=== PATIENT | male | born 1955 | race Caucasian/White ===

== ENCOUNTER 2019-02-23 18:03 | Inpatient (IN) ==
--- NOTE | 2019-02-23 19:07 | PROVIDER DOCUMENTATION ---
This chart was entered by Britany Yates Scribe, acting as scribe for Norberto Morataya DO. HPI-Respiratory General - General Source: patient - History of Present Illness-Resp Quality of Pain: reports: none Severity in ED: reports: mild Onset/Duration: reports: just prior to arrival Timing: reports: still present Exposure: reports: other (food bolus inhalation) Cough Quality/Degree: reports: no cough Current Respiratory Medication Therapy: Initiated none Modifying Factors: improves with: albuterol nebulizer Associated Symptoms: reports: denies symptoms. denies: cough, hyperventilating, shortness of breath Similar Symptoms Previously?: No Recently seen or treated by another doctor?: No <Norberto Morataya - Last Filed: 02/23/19 19:06> <Michael Brown - Last Filed: 02/23/19 20:04> - General Chief Complaint: Shortness of Breath Stated Complaint: CHOKING SENSATION, CAN'T BREATHE GOOD Time Seen by Provider: 02/23/19 18:23 Allergies/Adverse Reactions: Patient Allergies Allergy/AdvReac Type Severity Reaction Status Date / Time No Known Allergies Allergy Verified 06/23/17 19:43 Home Medications: Home Medication List Medication Instructions Recorded Confirmed Last Taken Type Gabapentin [Neurontin] 300 mg PO TID 10/27/12 02/23/19 06/23/17 History Hydrocodone/Acetaminophen [Lortab 1 each PO BID 10/27/12 02/23/19 06/23/17 History 7.5-500 Tablet] Metformin HCl [Fortamet] 1,000 mg PO BID 10/27/12 02/23/19 06/23/17 History Methocarbamol [Robaxin-750] 750 mg PO TID 10/27/12 02/23/19 06/23/17 History Amiodarone [Cordarone] 200 mg PO DAILY 06/23/17 02/23/19 06/23/17 History Nabumetone 750 mg PO BID 06/23/17 02/23/19 06/23/17 History - History of Present Illness-Resp Nature of Presenting Problem: Pt is 63/M presenting to ED after inhaling some "stew" at dinner. Pt sts that he has been having a hard time breathing since. Pt has hx of R lung cancer and had partial lung removal in August. Pt is on Cymbacort and uses a Nebulizer at home. HX of DM and a-fib. (Norberto Morataya) Review of Systems - Adult - REVIEW OF SYSTEMS - ADULT Constitutional: reports: no symptoms reported. denies: chills, fever Eyes: reports: no symptoms reported Ears, Nose, Mouth & Throat: reports: no symptoms reported Cardiovascular: reports: no symptoms reported. denies: chest pain Respiratory: reports: wheezing. denies: cough, pleurisy, shortness of breath Gastrointestinal: reports: no symptoms reported. denies: abdominal pain, nausea, vomiting Genitourinary: reports: no symptoms reported. denies: dysuria Musculoskeletal: reports: no symptoms reported Integumentary: reports: no symptoms reported Neurological: reports: no symptoms reported. denies: dizziness/vertigo, headache/migraines Psychiatric: reports: no symptoms reported Endocrine: reports: no symptoms reported Hematologic/Lymphatic: reports: no symptoms reported Allergic/Immunologic: reports: no symptoms reported <Norberto Morataya - Last Filed: 02/23/19 19:06> Past History - Adult - PAST MEDICAL HISTORY-ADULT Review of Records: reports: Old Records Reviewed, Nursing Assessment Review, Medications Reviewed, Social history reviewed & non-contributory. Cardiovascular: reports: HTN Endocrine/Immune: reports: Diabetes - IMMUNIZATION STATUS Childhood Immunizations: See Nurse Assessment Flu Vaccine: See Nurse Assessment - SOCIAL HISTORY Smoking: cigarettes, less than 1 pack/day Provider spent 3-5 mins advising pt. on dangers of tobacco.: Discussed manners to quit use, and f/u contacts for add'l counseling. Substance Use: none/never Alcohol Use Frequency: never Living Situation: family <Norberto Morataya - Last Filed: 02/23/19 19:06> Physical Exam-General - PHYSICAL EXAM-ADULT Initial Vital Signs Reviewed: Yes - CONSTITUTIONAL General Appearance: appears well, alert, mild distress, other - EYES Eyes: PERRL/EOMI, pink conjunctivae - HEAD, EARS, NOSE, MOUTH & THROAT HENMT: normocephalic/atraumatic, moist mucous membranes, normal ENT inspection, TMs normal, pharynx normal - NECK Neck: non-tender, full range of motion, supple, normal inspection - RESPIRATORY Respiratory: chest non-tender, normal breath sounds, wheezing (some bilateral wheezes) - CARDIOVASCULAR Cardiovascular: tachycardia (112 bpm) - GASTROINTESTINAL (ABDOMEN) Abdominal Exam: normal bowel sounds, non tender, soft - MUSCULOSKELETAL Extremity: normal range of motion, non-tender, normal gait, normal inspection - SKIN Integumentary: normal color, warm/dry - NEUROLOGIC Neurologic: grossly normal - PSYCHIATRIC Psych/Mental Status: normal mood/affect, normal thought content, normal thought process, oriented x 3 <Norberto Morataya - Last Filed: 02/23/19 19:06> Progress - PLAN OF CARE/RESULTS Result Diagrams: 02/23/19 18:46 - EKG 1 Time of EKG reading by physician:: 18:20 EKG Read and Signed by:: Norberto Morataya EKG Interpretation (*Must complete 3 of following elements*): Abnormal (Sinus tachycardia, Possible Left atrial enlargement. Right bundle branch block. Possible lateral infarct, age undetermined. Abnormal ECG) Rate: 110 Rhythm: sinus tachycardia [place]: normal 2 Time of EKG reading by physician:: 18:40 EKG Read and Signed by:: Norberto Morataya EKG Interpretation (*Must complete 3 of following elements*): Abnormal (Normal sinus rhythm, Right axis deviation, Possible Inferior infarct, age undetermined. Possible Anterior infarct, age undetermined. Abnormal ECG) Rate: 100 Rhythm: NSR [place]: normal QRS: normal - CHANGE OF SHIFT REPORT (ED Provider) 1 Report Given and Care Transferred to:: Dr Brown Time of Transfer: 19:00 <Norberto Morataya - Last Filed: 02/23/19 19:06> - PLAN OF CARE/RESULTS Result Diagrams: 02/23/19 18:46 <Michael Brown - Last Filed: 02/23/19 20:04> - PLAN OF CARE/RESULTS Progress/Plan/Lab Results: Vital Signs - 8 hr 02/23/19 18:05 Temperature 97.6 F Pulse Rate 112 H Respiratory Rate 24 Blood Pressure 180/100 O2 Sat by Pulse Oximetry 87 L Laboratory Results - last 24 hr 02/23/19 18:46 WBC 6.50 RBC 4.82 Hgb 14.4 Hct 43.6 MCV 90.5 MCH 29.9 MCHC 33.0 RDW Std Deviation 15.1 H Plt Count 262 MPV 10.4 Immature Gran % (Auto) 0.8 H Neut % (Auto) 43.9 Lymph % (Auto) 36.3 [place] % (Auto) 10.0 H Eos % (Auto) 7.2 Baso % (Auto) 1.8 H Immature Gran # (Auto) 0.05 H Neut # (Auto) 2.85 Lymph # (Auto) 2.36 [place] # (Auto) 0.65 H Eos # (Auto) 0.47 Baso # (Auto) 0.12 Orders Category Date Time Status CHEST-2 VIEWS [RAD] Stat Exams 02/23/19 18:23 Ordered CBC WITH ELECTRONIC DIFF [HEME] Stat Lab 02/23/19 18:46 Completed EKG [EKG] Stat Ther 02/23/19 18:18 Ordered EKG [EKG] Stat Ther 02/23/19 18:48 Ordered Pt signed out to me by dr. morataya, pt aspirated stew, pmh of lung ca s/p resection, pt not on O2 at home, with ambulation pt is desaturating to the 80s, will cover with abx and admit (Michael Brown) Departure <Norberto Morataya - Last Filed: 02/23/19 19:06> - Departure Date of Disposition Decision: 02/23/19 Time of Disposition Decision: 20:03 Certified Medical Emergency: Emergent - Critical Care Note This patient required my direct & personal management of CC.: No <Michael Brown - Last Filed: 02/23/19 20:04> - Departure DIAGNOSIS: Aspiration pneumonia Qualifiers: Aspiration pneumonia type: unspecified Laterality: unspecified laterality Lung location: lower lobe of lung Qualified Code(s): J69.0 - Pneumonitis due to inhalation of food and vomit Disposition: ADMITTED INPATIENT 09 Condition: Stable Referrals and Follow-Ups: Rogelio Weiss MD [AFFILIATE PROVIDER] - Attestation - Physician/ CESAR Attestation Patient care was provided by Advanced Practice Provider:: No The physician spent face to face time with patient:: Yes Advanced Practice Provider documentation review:: Supervising physician onsite and consulted in the evaluation and care of this patient. The physician did have a face to face encounter with the patient. <Norberto Morataya - Last Filed: 02/23/19 19:06> This chart was documented by the indicated scribe, (Britany Yates, Scribe) and accurately reflects the services I performed and decisions made by me, Nikki palafox,Norberto Yoder DO, as attested by the provider's signature.
[2019-02-23 19:19] LABS: BASO# 0.12 X1000 (0.0-0.2); BASO% 1.8 % (0.0-0.8); EOS# 0.47 X1000 (0.0-0.7); EOS% 7.2 % (0.0-10.0); HEMATOCRIT 43.6 % (42.0-52.0); HEMOGLOBIN 14.4 g/dL (14.0-18.0); IMM GRAN# 0.05 X1000 (0.0-0.04); IMM GRAN% 0.8 % (0.0-0.5); LYMPH# 2.36 X1000 (1.2-3.4); LYMPH% 36.3 % (20.5-51.1); MCH 29.9 PG (27-31); MCV 90.5 FL (81-99); MONO# 0.65 X1000 (0.11-0.59); MPV 10.4 FL (7.4-10.4); NEUT# 2.85 X1000 (1.4-6.5); NEUT% 43.9 % (42.2-75.2); PLT 262 X1000 (130-400); RBC 4.82 XMIL (4.7-6.1); RDW 15.1 % (11.5-14.5)
[2019-02-23] MEDS ORDERED: ROCEPHIN 1 GM in NS 50 ML IV ONE (20:04)
[2019-02-23] MEDS ORDERED: ZITHROMAX 500 MG/NS 500 MG/250 ML IVPB IV ONE (20:04)
--- NOTE | 2019-02-23 20:11 | EKG Report ---
Test Performed on : 02/23/2019 6:40:31 PM Test Reason : diff breathing Blood Pressure : / mmHG Vent. Rate : 100 BPM Atrial Rate : 100 BPM P-R Int : 164 ms QRS Dur : 120 ms QT Int : 382 ms P-R-T Axes : 070 116 034 degrees QTc Int : 492 ms Normal sinus rhythm. Right axis deviation Possible Inferior infarct , age undetermined Possible Anterior infarct (cited on or before 23-FEB-2019) Abnormal ECG When compared with ECG of 23-FEB-2019 18:10, (Unconfirmed) Right bundle branch block is no longer present Unconfirmed Result
--- NOTE | 2019-02-23 20:11 | EKG Report ---
Test Performed on : 02/23/2019 6:10:56 PM Test Reason : sob Blood Pressure : / mmHG Vent. Rate : 110 BPM Atrial Rate : 110 BPM P-R Int : 170 ms QRS Dur : 112 ms QT Int : 336 ms P-R-T Axes : 072 255 057 degrees QTc Int : 454 ms Sinus tachycardia. Possible Left atrial enlargement Right bundle branch block Possible Lateral infarct , age undetermined Abnormal ECG No previous ECGs available Unconfirmed Result
--- NOTE | 2019-02-23 20:32 | Diag Imaging Result Doc PS360 ---
CHEST-2 VIEWS - 02/23/2019 INDICATION: aspiration COMPARISON: 06/23/2017 FINDINGS: There is significant left hemidiaphragm elevation. There are surgical clips at the left hilum which may reflect a prior lobectomy. No significant infiltrates. Heart size is top normal. No pneumothorax or pleural effusion. IMPRESSION: No acute disease. Electronically signed by Vel Bautista 02/23/2019 8:29 PM
[2019-02-23 20:45] LABS: ALB/GLOB RATIO 1.1; CALCIUM 9.4 mg/dL (8.8-10.2); CREATININE 1.8 mg/dL (0.7-1.2); POTASSIUM 4.9 mmol/L (3.5-5.1); TOTAL BILIRUBIN 0.22 mg/dL (0.20-1.00); TOTAL PROTEIN 7.5 g/dL (6.3-8.3)
[2019-02-23] MEDS: FLAGYL 500 MG/NS 500 MG/100 ML IVPB IV SCH (21:31)
[2019-02-23] MEDS ORDERED: ZOFRAN IV PRN (21:51)
[2019-02-23] MEDS ORDERED: TYLENOL PO PRN (21:51)
[2019-02-23 22:00] LABS: HEMOGLOBIN A1C 7.4 % (4.8-6.0)
[2019-02-23 22:01] LABS: INR 0.92; PROTIME 12.5 Seconds (11.0-16.0)
[2019-02-23 22:08] LABS: URINE SOURCE CLEAN CATCH
--- NOTE | 2019-02-23 22:08 | HISTORY AND PHYSICAL ---
CHIEF COMPLAINT: Shortness of breath. HISTORY OF PRESENT ILLNESS: The patient is a very pleasant 63-year-old male who presented to the emergency department shortly after eating stew for dinner. He notes that he has been feeling fine. He has recently had right lung cancer and had a partial lobectomy in August. He also had laser treatment according to him on the left lung. He states he has had 2 separate cancers in each lung. He notes he has been actually doing well from that until tonight. He states he had eaten some stew. He thinks he may have gotten in too big of a hurry to eat and he started to get choked. Since then he has had coughing and congestion. He has presented to the ER, where they have given him breathing treatments, and he is actually requiring oxygen still. ALLERGIES: No known drug allergies. MEDICATIONS: Neurontin 300 daily and hydrocodone p.r.n. PAST MEDICAL HISTORY: Significant for hypertension, diabetes. He has had lung cancer, most recently with a right lobectomy. SOCIAL HISTORY: The patient continues to smoke a pack a day. He does not drink or use other illicit substances. He lives at home. He is cared for by his family. FAMILY HISTORY: Noncontributory. REVIEW OF SYSTEMS: Prior to this episode, he has been in his usual state of health. Denies any coughing, congestion, shortness of breath, palpitations, chest pain, dyspnea on exertion, PND, orthopnea or dysuria. No frequency, constipation, melena, hematochezia, weight loss or weight gain; however, as noted after eating stew he has been having a cough that has been nonproductive. PHYSICAL EXAMINATION: VITAL SIGNS: Reviewed. Temperature 97 degrees, pulse 112, respiratory 24, BP 180/100. Saturation 87% on room air, currently 96% on 2 L. GENERAL: The patient is very pleasant. He is in no respiratory distress, although he is having a cough and requiring oxygen. He has nonlabored breathing otherwise. HEENT: Normocephalic. NECK: Supple. CARDIOVASCULAR: Regular rate. No murmurs. CHEST: Decreased but equal breath sounds. Frequent coughing. No current wheezing. ABDOMEN: Soft, nondistended. EXTREMITIES: Moves all extremities. He does have a right [id number] amputation. NEUROLOGIC: No focal changes. LABORATORY DATA: WBC is 6, hemoglobin and hematocrit 14 and 43. ASSESSMENT: 1. Hypoxic respiratory failure, likely secondary to aspiration. 2. Aspiration pneumonitis versus pneumonia. 3. Recent history of lung cancer. 4. Chronic tobacco abuse. 5. Hypertension. PLAN: We are going to admit the patient to the hospital, place him on oxygen. His blood pressure is much better 137/88. O2 saturation is currently 95% with a respiratory rate of 16. We are going to place him on antibiotics, Rocephin and Flagyl. We will continue oxygen. Further orders as needed. cc: Gaurav Stewart MD
[2019-02-23 22:11] LABS: BILIRUBIN URINE NEGATIVE (NEGATIVE); BLOOD URINE NEGATIVE (NEGATIVE); COLOR YELLOW; GLUCOSE URINE 300 mg/dL (NEGATIVE); KETONE URINE NEGATIVE (NEGATIVE); LEUKOCYTES URINE NEGATIVE (NEGATIVE); NITRITE URINE NEGATIVE (NEGATIVE); PROTEIN URINE 100 mg/dL (NEGATIVE); SP GRAVITY URINE 1.017; TURBIDITY URINE CLEAR (CLEAR); UR EPITHELIAL CELLS <10 /HPF (<10); URINE BACTERIA NEGATIVE /HPF; URINE RBC <10 /HPF (<10); URINE WBC <10 /HPF (<10); UROBILINOGEN URINE NORMAL (NORMAL)
[2019-02-23] MEDS ORDERED: NS NEB INH SCH (22:21)
[2019-02-23] MEDS ORDERED: TESSALON PO PRN (22:21)
[2019-02-23] MEDS ORDERED: NICODERM PATCH TD PRN (22:21)
[2019-02-23] MEDS ORDERED: ROBAXIN PO PRN (22:21)
[2019-02-23] MEDS: NS 1,000 ML IV SCH (22:41)
[2019-02-23] MEDS: NEURONTIN PO SCH (22:41)
[2019-02-23] MEDS: CORDARONE PO SCH (22:41)
[2019-02-23] MEDS: XOPENEX NEB INH SCH (23:10)
[2019-02-23] MEDS: ATROVENT NEB INH SCH (23:15)
[2019-02-24] MEDS: ATROVENT NEB INH SCH ×6 (03:32→23:12)
[2019-02-24] MEDS: XOPENEX NEB INH SCH ×6 (03:32→23:12)
--- NOTE | 2019-02-24 04:15 | HISTORY AND PHYSICAL ---
PRIMARY CARE PROVIDER: Dr. Aldo Mattson. WAREHOUSE RECEIVER/ONCOLOGIST: Dr. Hawkins at [facility]. CHIEF COMPLAINT: Shortness of breath. HISTORY OF PRESENT ILLNESS: Mr. Bobby is a 63-year-old male with a past medical history most notable for bilateral lung cancer status post left upper lobectomy as well as radiation. He also has a history of COPD and does still smoke approximately 3 cigarettes a day. He also has a history of diabetes mellitus and atrial fibrillation. The patient states prior to his episode before arriving to the ER, he was feeling fine, He had no complaints. He stated that he was eating some stew and got choked, and since that time has been experiencing shortness of breath and is having pain in his right upper chest with deep inspiration. The patient reports that he does not wear oxygen at home, though upon arrival to the ER, he did have oxygen saturation of 87% on room air. He was noted to be slightly tachycardic at a rate in the 110s. His EKG showed sinus tachycardia with a right bundle branch block at a rate of 110. He does have wheezing and rhonchi noted bilaterally throughout full lung dale. He does have some crackles noted in the right upper lung field. With oxygen, nasal cannula at 4 L, he is maintaining oxygen saturations in the 90s, at this time. He is in no respiratory distress. He denies any headache, dizziness, chest pain, abdominal pain, nausea, vomiting, or diarrhea. He denies any hematochezia or melena. He denies any dysuria. The patient does report that he has some decreased sensation in his bilateral lower extremities, but this has been ongoing for quite some time, it is not new and has not worsened. He does have diabetes mellitus and neuropathy. He also denies any fever, body aches, or chills. Upon evaluation in the ER, he was noted to have elevated creatinine of 1.8 with a GFR of 38. His most recent prior to this in June 2017 was 1.3. The patient states he has been eating and drinking well. He has not had any new prescriptions or any changes in any of his medicines, though he did say he has been out in the heat working over the last day or 2, though his CK and troponin were normal. Urinalysis did show some protein and glucose, though was negative for any blood. Though his chest x-ray, at this time, did not show a definite pneumonia, we do suspect the patient will possibly have aspiration pneumonia. He has been placed with antibiotics of Rocephin and Flagyl. Blood cultures and sputum culture will be obtained. He will be placed on the medical floor with telemetry. REVIEW OF SYSTEMS: A 14 point review of systems was conducted with the patient and all were negative, except for pertinent positives mentioned above HPI. PAST MEDICAL HISTORY: 1. Bilateral lung cancer status post left upper lobectomy and radiation. 2. Diabetes mellitus. 3. Hypertension. 4. History of atrial fibrillation, currently on medication, amiodarone. The patient denies any anticoagulant use. 5. Degenerative joint disease. 6. Nicotine dependence. 7. COPD. 8. Chronic pain. PAST SURGICAL HISTORY: 1. A right arm surgery secondary to an infected wound from an electrocution that happened in 1990. 2. Skin grafts. 3. Penile implant. 4. Left toe amputation. 5. Left upper lobectomy. SOCIAL HISTORY: The patient is a smoker, he did previously smoke 1 pack per day, though has cut this back recently to 3 cigarettes per day. He denies any alcohol or illicit drug use. FAMILY HISTORY: His Mother had a history of breast cancer and did pass away from acute renal failure. His Father had a history of lung cancer. ALLERGIES: Patient has no known allergies. HOME MEDICATIONS: 1. Amiodarone 200 mg p.o. daily. 2. Neurontin 300 mg p.o. t.i.d. 3. [place] 7.5 mg, 1 p.o. b.i.d. 4. Metformin 1000 mg p.o. b.i.d. 5. Robaxin 750 mg p.o. t.i.d. 6. Relafen 750 mg p.o. b.i.d. 7. Symbicort 2 puffs inhaled b.i.d. DIAGNOSTIC DATA/LABORATORY RESULTS: White blood cell count is 6500, hemoglobin 14.4, hematocrit 43.6, platelet count is 262,000. PT 12.5, INR 0.92. Sodium 142, potassium 4.9, chloride 106, serum bicarb 26, BUN 20, creatinine 1.8 with a GFR 38. Glucose 173, calcium 9.4. Liver function tests within normal limits. CK 91, troponin less than 0.01. Urinalysis was obtained via clean catch, was positive for protein, glucose, was negative for ketones, blood, nitrites, leukocytes, white blood cells, or bacteria. EKG showed sinus tachycardia with possible left atrial enlargement and a right bundle branch block at a rate of 110 with a QTc of 454 msec. Chest x-ray showed no acute disease, this is per radiology. It was noted that the patient has surgical clips at the left hilum which may reflect a prior lobectomy, though there were no significant infiltrates noted. PHYSICAL EXAMINATION: VITAL SIGNS: Temperature 97.7 degrees, heart rate 116, respirations 20, blood pressure is 141/77, oxygen saturation was 97% on nasal cannula at 4 L. GENERAL: Mr. Bobby is a pleasant 63-year-old male who was resting in the ER stretcher. He was in no acute distress. He was awake, alert, and able to answer questions appropriately. HEENT: Head atraumatic, normocephalic. Pupils are equal, round, reactive to light, were 3 mm bilaterally and brisk. Oral mucosa was moist. Oropharynx is clear. NECK: Supple. Trachea midline. CARDIOVASCULAR: Patient has S1, S2 present. There are no murmurs, gallops, or rubs appreciated. A slightly tachycardic rate that is regular. PULMONARY: Patient has symmetrical chest expansion bilaterally. The patient did have rhonchi and wheezing noted throughout full bilateral lung dale. He did have some crackles noted in the right upper lung field. ABDOMEN: Soft, nontender, nondistended. Bowel sounds are present in all 4 quadrants, were normoactive. EXTREMITIES: No cyanosis or edema noted. Pulse, motor, and sensory are intact in all extremities. Radial and pedal pulses were 3+ bilaterally. INTEGUMENTARY: The patient's skin is pink, warm, and dry. NEUROLOGICAL: Patient is alert and oriented to person, place, time, and situation. He is able to move all extremities. There are no focal neurological deficits noted. ASSESSMENT AND PLAN: 1. Possible aspiration. The patient is reporting dyspnea, he is having some mild hypoxia with oxygen saturations in the high 80s. Though, is maintaining adequate oxygen saturations now with supplemental oxygen at 4 L per nasal cannula. We will continue with aggressive pulmonary toilet with incentive spirometry, Xopenex and Atrovent treatments. Encouragement of frequent turn, cough, and deep breathing. Blood cultures and sputum culture will be obtained. We have placed him on antibiotics of Rocephin and Flagyl to cover for possible aspiration pneumonia. We will continue to follow closely. 2. Hypoxia. We will continue with treatment as mentioned above for #1. 3. Chronic obstructive pulmonary disease. We will continue with treatment as mentioned above for #1 as well. 4. Acute kidney injury. The patient's last known creatinine was 1.3 in June 2017. He did report that he had been out in the heat the last day or 2 working, though states he had been drinking fluids well. He denies any new medicines or any changes in his current medication doses. We will continue to follow this closely. We will provide some gentle intravenous hydration. We have held his metformin and made dosage adjustments to his other medications based off of his current renal function. We will avoid nephrotoxic medications. 5. Diabetes mellitus type 2. We will place him on a sliding scale insulin. We will do pattern fingerstick blood sugars. 6. History of atrial fibrillation. The patient currently, at this time, is in sinus tachycardia. We will continue his amiodarone. He will be placed on continuous cardiac telemetry. He is denying any chest pain. Cardiac enzymes, at this time, are within normal limits. 7. Deep vein thrombosis prophylaxis. Will be provided with heparin 5000 units subcutaneously q.12 hours. He has been placed on the medical floor with telemetry. We will do vital signs every 8 hours. He will be on strict intake and output, diabetic and heart healthy diet. We will repeat a CBC, BMP in the morning. Further orders and recommendations pending hospital course, diagnostic studies, and physician evaluation. Dictated by SHILA Rubin for Gaurav Stewart MD cc: Gaurav Stewart MD
[2019-02-24] MEDS: FLAGYL 500 MG/NS 500 MG/100 ML IVPB IV SCH ×3 (04:27→20:39)
[2019-02-24 05:41] LABS: BASO# 0.05 X1000 (0.0-0.2); BASO% 0.7 % (0.0-0.8); EOS# 0.36 X1000 (0.0-0.7); EOS% 5.1 % (0.0-10.0); HEMATOCRIT 41.9 % (42.0-52.0); HEMOGLOBIN 13.8 g/dL (14.0-18.0); IMM GRAN# 0.03 X1000 (0.0-0.04); IMM GRAN% 0.4 % (0.0-0.5); LYMPH# 1.79 X1000 (1.2-3.4); LYMPH% 25.3 % (20.5-51.1); MCH 30.3 PG (27-31); MCHC 32.9 g/dL (33-37); MCV 91.9 FL (81-99); MONO% 8.5 % (1.7-9.3); NEUT# 4.25 X1000 (1.4-6.5); PLT 213 X1000 (130-400); RBC 4.56 XMIL (4.7-6.1); RDW 15.3 % (11.5-14.5); WBC 7.08 X1000 (4.8-10.8)
[2019-02-24 06:14] LABS: CALCIUM 8.9 mg/dL (8.8-10.2); CREATININE 1.6 mg/dL (0.7-1.2); POTASSIUM 4.3 mmol/L (3.5-5.1)
[2019-02-24] MEDS: HEPARIN SUBQ SCH ×2 (09:45→20:38)
[2019-02-24] MEDS: NEURONTIN PO SCH ×2 (09:45→20:38)
--- NOTE | 2019-02-24 11:53 | PROGRESS NOTE ---
DATE: 02/24/2019 SUBJECTIVE: This morning, Mr. Bobby refers to be doing a lot better. Still has some residual shortness of breath and cough but otherwise unremarkable. OBJECTIVE: Vital Signs: Blood pressure is 134/59, pulse of 70, respirations are 18, temperature 97.9 degrees. General Examination: Mr. Bobby is a 63-year-old, gentleman. He is in bed. No distress. HEENT: Mucosa is pink and moist. Anicteric. Acyanotic. Neck: Supple. Chest: Air entry is bilaterally reduced, especially to the posterior lung dale. Cardiovascular: Regular rate and rhythm. Abdomen: Soft, nontender. Extremities: No pedal edema. 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 He also has scar tissue on the right flank to the back and the center of the upper back. A chest x-ray shows no acute disease. Significant elevation of the left hemidiaphragm. ASSESSMENT: 1. Acute hypoxemic respiratory failure. This is improved with oxygen therapy. Presumably due to aspiration pneumonitis. 2. Suspected aspiration pneumonitis. A chest x-ray was unremarkable. We will follow this up with a CT scan. 3. Acute on chronic kidney injury. Creatinine is down to 1.6. 4. History of paroxysmal atrial fibrillation, currently rate controlled. The patient is on amiodarone. 5. Diabetes mellitus. We will continue with insulin regimen. The patient has an A1c of 7.4. He was on metformin at home which I think that needs to be changed because of the level of the renal failure. PLAN: In general, I think Mr. Bobby is now a lot better. He is saturating about 99 on 2 L. We are going to take it off and see if he will be okay without any oxygen therapy. We are going to also get a CT scan of the chest to rule out any other pathology to explain the acute onset of the shortness of breath and the hypoxemia. I think if the CT scan is unremarkable, we can discharge Mr. Bobby home. cc: Cal Loja MD
--- NOTE | 2019-02-24 14:19 | Diag Imaging Result Doc PS360 ---
CT THORAX W/O CONTRAST - 02/24/2019 INDICATION: acute dyspnea. H/o left upper lobectomy COMPARISON: 11/14/2018, 11/28/2018 FINDINGS: Stable surgical changes of left upper lobectomy. Stable trace pleural thickening on the left side. There is a small rounded soft tissue density in the distal interlobar bronchus on the right side. This measures about 8.5 mm. This is compatible with an inhaled foreign body, probably something like a peanut. There is some scattered linear atelectasis in the right lung base. No adenopathy. Heart size is grossly normal. Upper abdomen is normal. There are moderate degenerative changes of the spine. No acute or suspicious bony lesion. IMPRESSION: Inhaled foreign body at the bifurcation of the interlobar bronchus on the right side, probably something like a peanut. This is causing some atelectasis in the right lung base. This exam was performed using automated exposure control, adjustment of mA or kV according to patient size, and/or use of iterative reconstruction technique Electronically signed by Vel Bautista 02/24/2019 2:17 PM
[2019-02-24] MEDS: NS 1,000 ML IV SCH (14:26)
[2019-02-24] MEDS: CORDARONE PO SCH (20:38)
[2019-02-24] MEDS: ROCEPHIN 1 GM in NS 50 ML IV SCH (20:38)
[2019-02-25] MEDS: XOPENEX NEB INH SCH ×6 (03:02→22:25)
[2019-02-25] MEDS: ATROVENT NEB INH SCH ×6 (03:03→22:25)
[2019-02-25] MEDS: FLAGYL 500 MG/NS 500 MG/100 ML IVPB IV SCH ×3 (04:38→20:29)
[2019-02-25] MEDS: NS 1,000 ML IV SCH (07:17)
[2019-02-25] MEDS: HEPARIN SUBQ SCH (08:59)
[2019-02-25] MEDS: NEURONTIN PO SCH ×2 (08:59→20:29)
--- NOTE | 2019-02-25 19:24 | PROGRESS NOTE ---
DATE: 02/25/2019 SUBJECTIVE: Today, Mr. Bobby refers to be doing well. Still has some mild coughing and right anterior chest pain. OBJECTIVE: Vital signs: Blood pressure is 124/51, pulse of 80, respirations 18, temperature 99.8 degrees. The patient was saturating 97% on nasal cannula. General: Mr. Bobby is a 63-year-old male. He is in bed. No distress. HEENT: Mucosa is pink and moist. Anicteric. Acyanotic. Neck: Supple. Chest: Air entry is bilaterally reduced, more so to the right posterior lung field. There are a few crackles. Cardiovascular: Regular rate and rhythm. No murmurs, no rubs, no gallops. GI: Abdomen was soft, nontender. Bowel sounds present. DIRECTOR OF OCCUPATIONAL HEALTH: Patient is awake, alert, and oriented. Musculoskeletal: There is a right upper extremity below- elbow old amputation. There is also some scar tissue to the right flank and to the back. IMAGING: A CT scan, which was done yesterday shows inhaled foreign body at the bifurcation of the inter lobe bronchus and the right and probably something like a peanut causing atelectasis. ASSESSMENT: 1. Acute hypoxemic respiratory failure on presentation due to aspiration of foreign body associated with atelectasis. 2. Foreign body aspiration. The patient will undergo bronchoscopy with attempt to remove the foreign body tomorrow. 3. Acute on chronic kidney disease. We will repeat the renal function tests for tomorrow. 4. History of paroxysmal atrial fibrillation, currently rate and rhythm controlled. Patient is on amiodarone. 5. Diabetes mellitus, controlled. 6. Suspected underlying chronic obstructive pulmonary disease with mild bronchospasm. The patient is on p.r.n. nebulization. 7. Status post left upper lobectomy and radiation for lung cancer. PLAN: So in general Mr. Bobby is a lung cancer survivor patient who said he was at the restaurant on the day of presentation. He thinks he might have aspirated either corn or a peanut. He came in with cough and shortness of breath, found to be in hypoxemic failure which has gradually improved. A CT scan of the chest revealed a foreign body in the right bronchus and Pulmonary Medicine has been consulted. There is a tentative plan for a bronchoscopy tomorrow. I have spoken with the aircraft layout worker on board and have notified Mr. Bobby. cc: Cal Loja MD
[2019-02-25] MEDS: ROCEPHIN 1 GM in NS 50 ML IV SCH (20:28)
[2019-02-25] MEDS: CORDARONE PO SCH (20:29)
[2019-02-25] MEDS: NORCO-7.5 PO PRN (20:38)
[2019-02-26] MEDS: FLAGYL 500 MG/NS 500 MG/100 ML IVPB IV SCH ×4 (04:07→20:38)
[2019-02-26] MEDS: ATROVENT NEB INH SCH ×6 (04:58→23:57)
[2019-02-26] MEDS: XOPENEX NEB INH SCH ×6 (04:58→23:57)
[2019-02-26 05:30] LABS: HEMATOCRIT 38.2 % (42.0-52.0); HEMOGLOBIN 12.5 g/dL (14.0-18.0); MCH 30.5 PG (27-31); MCHC 32.7 g/dL (33-37); MCV 93.2 FL (81-99); RBC 4.1 XMIL (4.7-6.1); RDW 15.8 % (11.5-14.5); WBC 7.81 X1000 (4.8-10.8)
[2019-02-26 06:09] LABS: ALBUMIN 3.3 g/dL (3.5-5.0); CALCIUM 8.7 mg/dL (8.8-10.2); CREATININE 1.5 mg/dL (0.7-1.2); PHOSPHORUS 3.6 mg/dL (2.7-4.5)
--- NOTE | 2019-02-26 07:49 | CONSULTATION ---
DATE OF CONSULTATION: 02/25/2019 REQUESTING PROVIDER: Dr. Cal Loja. REASON FOR CONSULTATION: Foreign body in bronchials. HISTORY OF PRESENT ILLNESS: This is a 63-year-old, male with a medical history of bilateral lung cancer, COPD, ongoing tobacco abuse, diabetes mellitus type 2, hypertension, atrial fibrillation, degenerative joint disease, degenerative joint disease, and chronic pain. He presented to the ER on the evening of 02/23/2019 with acute worsening shortness of breath and choking sensation and pleurisy on the right upper chest. CT of thorax without contrast on 02/24/2019 revealed inhaled foreign body at the bifurcation of the intralobar bronchus on the right side, probably something like a peanut, which is causing some atelectasis in the right lung base. Initial lab also showing acute kidney injury with a creatinine of 1.8 and a GFR of 36. He has been put on antibiotics including Rocephin and Flagyl, and breathing treatments including Xopenex and Atrovent. The patient currently is lying in bed with no acute distress noted. He does have frequent productive cough during my examination. He currently is on nasal cannula at 4 L with oxygen saturations in the lower 90s. He stated that he feels some better since admission but the pleurisy on the right upper chest is slightly worsening as his cough became more frequent since admission. He reports no fever, chills, nausea, vomiting, bowel habit change, or urination discomfort. No wheezing before this incident, or pedal edema. PAST MEDICAL HISTORY: 1. Bilateral lung cancer, status post left upper lobectomy this August and radiation x5 with the last one this January. 2. COPD, on albuterol and Symbicort at home. He states he used albuterol at least more than twice a week. 3. Ongoing tobacco abuse. 4. Diabetes mellitus type 2. 5. Hypertension. 6. Atrial fibrillation, on amiodarone at home. 7. Degenerative joint disease. 8. Chronic pain, on Lortab 7.5 at home. PAST SURGICAL HISTORY: 1. Left upper lobectomy. 2. 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 3. Skin grafts. 4. Penile implant. 5. Left toe amputation. SOCIAL HISTORY: The patient lives at home with his sisters. He is a smoker. He started smoking since 16-year-old. He used to smoke 1 pack per day. Since he was diagnosed with lung cancer, he is trying to cut this back and currently he smokes 3 to 4 cigarettes per day. He has no history of alcohol or illicit drug use. FAMILY HISTORY: Positive for breast cancer and lung cancer. ALLERGIES: No known drug allergies. REVIEW OF SYSTEMS: A 10-point review of systems was conducted and the pertinent findings are listed within the HPI, otherwise noncontributory. PHYSICAL EXAMINATION: Vital Signs: Temperature 98.2, blood pressure 120/53, pulse 77, respiratory rate 18, oxygen saturation 94% on nasal cannula at 4 L. General: The patient currently is lying in bed. There is no acute distress noted. He does have some frequent productive cough during my examination. HEENT: Atraumatic, normocephalic. Trachea midline. Mucosa pink and slightly dry. Respiratory: Even and unlabored, symmetrical excursion. Auscultation revealed diminished breathing sounds bilaterally with some intermittent rhonchi in the right upper lung zones. Cardiovascular: Regular rate and rhythm. Gastrointestinal: Soft, nondistended, nontender. Normoactive bowel sounds in all 4 quadrants. Extremities: No pedal edema. No cyanosis. No clubbing. Dorsalis pedis 2+ bilaterally. Neurologic: Alert and oriented x4. Calm, pleasant, cooperative. Speech fluent. Follows commands. LAB DATA: No labs today. IMAGING DATA: See [facility] for CT of the thorax without contrast on 02/24/2019. ASSESSMENT: This is a 63-year-old, male with a medical history of bilateral lung cancer, chronic obstructive pulmonary disease, ongoing tobacco abuse, diabetes mellitus type 2, hypertension, atrial fibrillation, degenerative joint disease, and chronic pain. He has been admitted since 02/23/2019 with acute hypoxic respiratory failure secondary to foreign body aspiration and possible aspiration pneumonia. 1. Acute hypoxic respiratory failure. 2. Foreign body aspiration at the bifurcation of the intralobar bronchus on the right side, probably something like a peanut. 3. Possible aspiration pneumonia with right lung base atelectasis. 4. Chronic obstructive pulmonary disease, no acute exacerbation noted. 5. Ongoing tobacco abuse. 6. Bilateral lung cancer, status post left upper lobectomy this August and radiation this January. PLAN: 1. Continue supplemental oxygen as needed. 2. We are planning bronchoscopy tomorrow early afternoon. Patient currently is on Heparin 5,000 unit BID. We are going to hold it till 24 hours after procedure. 3. Continue antibiotic and bronchodilators. 4. Follow up with CBC, renal profile, sputum culture, and blood culture. 5. Daily smoking cessation education. The patient stated he is ready to quit smoking at this time. 6. Further recommendations pending hospital course. Thank you for the courtesy of this consult. Dictated by SHILA Huang for Juan Robbins MD cc: SHILA Huang MD [facility]
[2019-02-26] MEDS ORDERED: EPINEPHRINE ONE (12:06)
[2019-02-26] MEDS ORDERED: XYLOCAINE 2% VISCOUS ONE (12:06)
[2019-02-26] MEDS ORDERED: XYLOCAINE 1% ONE (12:06)
[2019-02-26] MEDS ORDERED: XYLOCAINE 2% ONE (12:07)
[2019-02-26] MEDS ORDERED: SODIUM CHLORIDE 0.9% 20 ML ONE (12:07)
[2019-02-26] MEDS ORDERED: DIPRIVAN 1% ONE (12:20)
[2019-02-26] MEDS ORDERED: XYLOCAINE-MPF 2% ONE (12:53)
[2019-02-26] MEDS ORDERED: VERSED ONE (12:54)
--- NOTE | 2019-02-26 13:46 | PROGRESS NOTE ---
DATE: 02/26/2019 SUBJECTIVE: This patient seems to be resting comfortably in bed. He still was having some coughing and right-sided chest discomfort. OBJECTIVE: Vital Signs: Temperature 99.3 degrees, pulse 86, respiratory rate 16, blood pressure 125/56, oxygen saturation 99 on 2 L of nasal cannula. HEENT: Head normocephalic. No trauma. PERRLA. Neck: Supple. No JVD. No masses. Central trachea. Chest: Decreased breath sounds, mostly at the bases, mostly on the right side, with some crepitus. Cardiovascular: RRR. Abdomen: Soft, nontender, nondistended. No hepatosplenomegaly. Extremities: No edema, no clubbing, no cyanosis. He does have a right upper extremity [id number] amputation, which is old. Neurological Examination: The patient is alert and oriented x3. No focal deficit. Laboratory: WBC 7.8, hemoglobin 12.5, hematocrit 38.2, platelets 195,000. Sodium 142, potassium 4, chloride 104, bicarbonate 26, BUN 23, creatinine 1.5, glucose 165, calcium 8.7, albumin 3.3. ASSESSMENT AND PLAN: 1. Acute hypoxemic respiratory failure on presentation due to aspiration of foreign body, associated with atelectasis. He seems to be doing better. He is scheduled today to go for a bronchoscopy. 2. Foreign body aspiration. Like I mentioned before, he is scheduled for a bronchoscopy today with attempt to remove the foreign body today. 3. Acute on chronic kidney disease. BUN increased a little bit compared with yesterday. Creatinine seems to be stable. Upon admission, it was 1.8. Now, it is 1.5. I will put him on a little bit of fluids since he is nothing per oral. 4. History of paroxysmal atrial fibrillation, rate controlled. Patient is on amiodarone. 5. Type 2 diabetes, controlled. 6. Chronic obstructive pulmonary disease with mild bronchospasm upon admission. Continue with as needed nebulization. He seems to be better. 7. Status post left upper lobectomy and radiation for lung cancer. Aware. cc: Alfredo Humphries MD
--- NOTE | 2019-02-26 13:51 | Diag Imaging Result Doc PS360 ---
CHEST-PORTABLE - 02/26/2019 INDICATION: Post Op COMPARISON: 02/23/2019 FINDINGS: Stable left hemidiaphragm elevation. The left lung is clear. There is a new infiltrate in the right lung base. Heart size remains top normal. No pneumothorax or large pleural effusion. IMPRESSION: Right basilar infiltrate or atelectasis. Electronically signed by Vel Bautista 02/26/2019 1:49 PM
[2019-02-26] MEDS: NEURONTIN PO SCH ×2 (14:15→20:38)
[2019-02-26] MEDS: D5 1/2 NS 1,000 ML IV SCH (14:22)
--- NOTE | 2019-02-26 15:46 | OPERATIVE NOTE ---
PROCEDURE DATE: 02/26/2019 REFERRING PHYSICIAN: Cal Loja MD and Dr. Lawrence. PROCEDURE: Bronchoscopy. DESCRIPTION OF PROCEDURE: Consent obtained. Conscious sedation administered by Anesthesia. Local lidocaine applied to the left nostril and throat. Flexible bronchoscope was passed. Normal vocal cord movements. Major segments visualized. Fluoroscopy scanning used for sampling. There is an additional bronchial segment on the right side just above the bifurcation. On the left upper lobe there is findings of obliteration of the airway likely related to old surgery. We see in the truncus intermedius a foreign body, food particle with rounded smooth surface and that was removed successfully using a Dormia basket. We did take washings from both lungs, sent for cytology and microbiology. Patient tolerated procedure well. After clearing the foreign body, we examined the major segments again visualized. IMPRESSION: Foreign body aspiration removed successfully. PLAN: Awaiting for microbiology and pathology results. cc: Juan Robbins MD MTDD
[2019-02-26] MEDS: NORCO-7.5 PO PRN (18:48)
[2019-02-26] MEDS: ROCEPHIN 1 GM in NS 50 ML IV SCH (20:38)
[2019-02-26] MEDS: CORDARONE PO SCH (20:38)
[2019-02-27] MEDS: ATROVENT NEB INH SCH ×3 (03:53→11:39)
[2019-02-27] MEDS: XOPENEX NEB INH SCH ×3 (03:53→11:39)
[2019-02-27 05:19] LABS: BASO# 0.04 X1000 (0.0-0.2); BASO% 0.5 % (0.0-0.8); EOS# 0.27 X1000 (0.0-0.7); EOS% 3.4 % (0.0-10.0); HEMATOCRIT 36.6 % (42.0-52.0); HEMOGLOBIN 11.8 g/dL (14.0-18.0); LYMPH# 1.27 X1000 (1.2-3.4); LYMPH% 16.2 % (20.5-51.1); MCH 29.7 PG (27-31); MCHC 32.2 g/dL (33-37); MCV 92.2 FL (81-99); MONO# 1.12 X1000 (0.11-0.59); MONO% 14.3 % (1.7-9.3); NEUT# 5.14 X1000 (1.4-6.5); NEUT% 65.6 % (42.2-75.2); PLT 177 X1000 (130-400); RBC 3.97 XMIL (4.7-6.1); RDW 15.3 % (11.5-14.5); WBC 7.84 X1000 (4.8-10.8)
[2019-02-27] MEDS: FLAGYL 500 MG/NS 500 MG/100 ML IVPB IV SCH (05:19)
[2019-02-27 05:50] LABS: CALCIUM 8.7 mg/dL (8.8-10.2); CREATININE 1.4 mg/dL (0.7-1.2); POTASSIUM 3.8 mmol/L (3.5-5.1)
[2019-02-27] MEDS: NEURONTIN PO SCH (08:41)
[2019-02-27 09:09] VITALS: BP 121/62
[2019-02-27] MEDS: D5 1/2 NS 1,000 ML IV SCH (11:17)
[2019-02-27] MEDS ORDERED: FLU VACCINE IM ONE (13:51)
--- NOTE | 2019-02-28 08:41 | DISCHARGE SUMMARY ---
ADMISSION DATE: 02/23/2019 DISCHARGE DATE: 02/27/2019 DISCHARGE DIAGNOSES: 1. Acute hypoxemic respiratory failure on presentation due to aspiration of foreign body. 2. Foreign body aspiration. 3. Acute on chronic kidney disease. 4. History of paroxysmal atrial fibrillation, rate controlled. 5. Type 2 diabetes. 6. Chronic obstructive pulmonary disease with mild bronchospasm upon admission. 7. Status post left upper lobectomy and radiation for lung cancer. PROCEDURES PERFORMED: 1. Chest x-ray dated 02/23/2019, impression: No acute disease. 2. Chest CT scan dated 02/24/2019, impression: Inhaled foreign body at the bifurcation of the interlobar bronchus on the right side, probably something like a peanut. This is causing some atelectasis in the right lung base. 3. Chest x-ray dated 02/26/2019, impression: Right basilar infiltrate or atelectasis. HOSPITAL COURSE: A 63-year-old male with past medical history of lung cancer, status post left upper lobectomy as well as radiation, COPD, tobacco abuse, diabetes, and atrial fibrillation, presented to the emergency department after getting choked, and since then, he has been having shortness of breath and pain in the right upper chest with deep inspiration. Oxygen saturation was around 87 on room air. He was slightly tachycardic. EKG shows sinus tachycardia. He presented with wheezing and rhonchi noted bilaterally throughout full lung dale. Some crackles also noted on the right upper lung field. He was placed on oxygen. On the other hand, his creatinine was elevated compared with baseline. The patient actually was eating and drinking well. A chest x-ray was done, but did not show any acute disease, but a CT scan of the chest showed inhaled foreign body at the bifurcation of the interlobar bronchus on the right side, probably something like a peanut, and this is causing some atelectasis in the right lung base. Pulmonary Department was consulted, and they did a bronchoscopy, where they removed that foreign body, aspirated successfully. This patient was feeling better on a daily basis, especially after the procedure. Today, he is basically asymptomatic, so he will be discharged home. I discussed with the patient about the way to eat, and also discussed with him about his atrial fibrillation. I did not see any anticoagulation on his medications, and he states that his doctor knows about it, and he did not put him on anticoagulation, so I told the patient to follow up with that with his doctor in [place]. PHYSICAL EXAMINATION: Vital Signs: Temperature 97.5 degrees, pulse 64, respiratory 15, blood pressure 121/62, oxygen saturation 95% on 2 L of nasal cannula. HEENT: Head normocephalic. No trauma. PERRLA. Neck: Supple. No JVD. No masses. Central trachea. Chest: Clear to auscultation. Some crepitus on the right thoracic area, upper part. Cardiovascular: RRR. Abdomen: Soft, nontender, nondistended. No hepatosplenomegaly. Extremities: No edema, no clubbing, no cyanosis. He does have a right upper extremity [id number] with amputation, which is old. Neurological: The patient is alert. He is oriented x3. No focal deficits. LABORATORY DATA: WBC 7.8, hemoglobin 11.8, hematocrit 36.6, platelets 177,000. Sodium 141, potassium 3.8, chloride 105, bicarbonate 26, BUN 18, creatinine 1.4, glucose 203, calcium 8.7. DISCHARGE MEDICATIONS: Acetaminophen 650 mg p.o. every 6 hours as needed, amiodarone 200 mg p.o. daily, Keflex 500 mg p.o. twice a day for 4 more days, gabapentin 300 mg p.o. b.i.d., Lortab 7.5 twice a day (will continue with that), metformin 1000 mg p.o. b.i.d., Robaxin 750 mg p.o. t.i.d., nabumetone 750 mg p.o. b.i.d. cc: Alfredo Humphries MD
== END 2019-02-27 15:19 | disposition home or self-care (01) | DRG 205 ==
LOC: SUPCPDRO → ED 18:03 → SUATTDRO 21:51 → 1N 21:51
PROVIDERS: ATTEND Internal Medicine